=== PATIENT | female | born 1965 | race Caucasian/White ===

== ENCOUNTER 2022-11-07 10:48 | Emergency (ER) | payer MEDICARE, SELFPAY ==
--- NOTE | ~2022-11-07 | CT_ITS ---
EXAMINATION: CT brain wo con INDICATION: Altered mental status COMPARISON: None TECHNIQUE: Standard unenhanced head CT. The dose-length product (DLP) was 1513.33 mGy-cm. The mA was adjusted according to patient size. Iterative reconstruction technique was employed. FINDINGS: Motion artifact limits the examination despite multiple attempts at rescanning. There is no intracranial hemorrhage, acute infarction, or abnormal mass lesion. The ventricles are normal. There is no abnormal mass effect or midline shift. The dhillon-white matter differentiation is normal. The ba duc cisterns are patent. The orbits are normal. The paranasal sinuses, mastoids and calvarium are nor mal. IMPRESSION: 1. No acute intracranial abnormality, sensitivity limited by motion artifact. Reviewed, dictated and finalized at location A.
[2022-11-07 10:26] VITALS: BP 149/95; PULSE 108; RESP 18; TEMP 37.1; O2SAT 100
[2022-11-07 10:33] VITALS: PULSE 108
--- NOTE | 2022-11-07 11:02 | ED.GENADULT ---
HPI - General Adult General Chief complaint: Unspecified Stated complaint: requesting drug test Time Seen by Provider: 11/07/22 10:49 Source: patient Mode of arrival: EMS Limitations: no limitations History of Present Illness HPI narrative: Patient is a 57 y/o female who presents to the ED via EMS with altered mental status. Patient called for EMS today from [place] police station due to not knowing where she was at. Per EMS report she lives in [place], [place] and was unsure why she was in [place]. She reports to me that she met up with an old friend around 3pm yesterday and smoked crystal meth. She states she had been clean for some time and is unsure why she did this yesterday. She then left to drop off her boss's debit card in [facility] and states she just continued driving aimlessly and ultimately ended up in [place]. She was stopped by the police while driving last night and was in [place] overnight. She states she was confused when the chief commercial officer pulled her over and is concerned somebody slipped her something because why would she drive aimlessly like that. She is requesting a drug screen. Patient denies any pain. No focal weakness, CP, SOB, SI, HI. Per records, patient has history of bipolar disorder, anxiety disorder, tardive dyskinesia. Related Data Allergies Allergy/AdvReac Type Severity Reaction Status Date / Time No Known Allergies Allergy Verified 11/07/22 10:33 Review of Systems Review of Systems: CONSTITUTIONAL: Denies fever, chills, or sweats. EYES: Denies visual changes. CARDIOVASCULAR: Denies chest pain. RESPIRATORY: Denies dyspnea. GASTROINTESTINAL: Denies abdominal pain, nausea, vomiting, or diarrhea. GENITOURINARY: Denies dysuria or hematuria. NEUROLOGIC: See HPI. PSYCHIATRIC: See HPI. All systems reviewed & are unremarkable except as noted in HPI and below PMFSH Past Medical History Medical History (Updated 11/07/22 @ 13:11 by Tamika Santoyo PA-C) Anxiety Bipolar disorder Tardive dyskinesia Surgical History Surgical History (Updated 11/07/22 @ 11:39 by Tamika Santoyo PA-C) No pertinent past surgical history Social History Social History (Updated 11/07/22 @ 11:39 by Tamika Santoyo PA-C) Substance use: current Substance use type: amphetamines Exam Narrative: GENERAL: Anxious appearing, well-nourished, non-toxic, in no acute distress. HEAD: Normocephalic, atraumatic. EYES: PERRLA/EOMI, conjunctiva clear. Wide-eyed. ENT: MMs normal. Frequent grinding of teeth. NECK: Supple. No adenopathy, no masses. RESPIRATORY: Airway patent, respirations nonlabored. Clear to auscultation bilaterally, no rales, rhonchi, wheezing. CARDIOVASCULAR: Regular rate and rhythm without murmurs, rubs, or gallops. Radial pulses 2+ and equal bilaterally. ABDOMINAL: Soft, nontender, nondistended, no hepatosplenomegaly. Normoactive BS. MUSCULOSKELETAL: Moves all extremities. Strength/ROM intact without gross deformities. SKIN: Warm, dry, normal color. No rashes. NEURO: A&O X3. Speech clear. Cranial nerves II-XII grossly intact. Steady gait. No ataxic movements. No focal deficits. Strength 5/5 in upper and lower extremities bilaterally. PSYCHIATRIC: Anxious, paranoid. Normal interaction. Course Vital Signs Vital signs: Vital Signs Temperature 98.7 F 11/07/22 10:26 Pulse Rate 108 H 11/07/22 10:26 Respiratory Rate 18 11/07/22 10:26 Blood Pressure 149/95 H 11/07/22 10:26 Pulse Oximetry 100 11/07/22 10:26 Oxygen Delivery Room Air 11/07/22 10:26 Temperature 98.7 F 11/07/22 10:26 Pulse Rate 98 11/07/22 13:12 Respiratory Rate 18 11/07/22 13:12 Blood Pressure 135/76 11/07/22 13:12 Pulse Oximetry 98 11/07/22 13:12 Oxygen Delivery Room Air 11/07/22 10:26 Medical Decision Making MDM Narrative Medical decision making narrative: Patient presented to ED with report of altered mental status, found driving around [place], unsure how
[2022-11-07 11:27] LABS: Basophils Percent Auto 0.4 % (0.2-1.2); Eosinophils Absolute Auto 0.1 K/mm3 (0-0.3); Eosinophils Percent Auto 0.7 % (0-4.4); Hematocrit 43.4 % (37.0-47.0); Hemoglobin 15.1 g/dL (12.0-15.0); Immature Granulocyte Absolute 0.03 K/mm3 (0.00-0.031); Immature Granulocyte Percent A 0.3 % (0-0.5); Lymphocytes Absolute Auto 1.56 K/mm3 (0.9-3.2); Lymphocytes Percent Auto 14.3 % (18.3-44.2); Mean Corpuscular HGB Conc 34.8 g/dl (32-36); Mean Corpuscular Hemoglobin 31.3 pg (26-34); Mean Platelet Volume 11.7 fl (7.4-10.4); Monocytes Absolute Auto 1.1 K/mm3 (0.1-0.6); Monocytes Percent Auto 9.8 % (2.6-8.5); Neutrophils Absolute Auto 8.1 K/mm3 (1.3-6.7); Neutrophils Percent Auto 74.5 % (45.5-73.1); Platelet Count Result 247 k/mm3 (150-375); Red Blood Count 4.82 M/mm3 (4.2-5.4); Red Cell Distribution Width 12.8 % (11.5-14.5); White Blood Count 10.9 K/mm3 (4.5-10.0)
[2022-11-07 11:36] LABS: Alanine Aminotransferase 22 U/L (6-35); Albumin Level 4.7 g/dL (3.5-5.1); Alkaline Phosphatase 75 U/L (38-126); Anion Gap 11 mmol/L (8-16); Aspartate Amino Transferase 30 U/L (14-36); Bilirubin,Total 0.8 mg/dL (0.2-1.3); Blood Urea Nitrogen 7 mg/dL (7-17); Calcium 9.5 mg/dL (8.4-10.2); Carbon Dioxide 19 mmol/L (22-30); Chloride 108 mmol/L (98-107); Estimated CRCL calculation 67 ml/min; Estimated Glomerular Filt Rate > 60; Glucose 100 mg/dL (65-110); Potassium 3.4 mmol/L (3.4-5.0); Sodium 138 mmol/L (137-145)
[2022-11-07 12:11] LABS: Appearance Urine Clear (Clear); Bacteria Urine None Seen /hpf; Bilirubin Urine Negative (Negative); Blood Urine Negative (Negative); Color Urine Yellow (Yellow); Glucose Urine UA Negative (Negative); Ketones Urine Trace mg/dL (Negative); Leukocyte Esterase Ur Trace LEU/UL (Negative); Nitrate Urine Negative (Negative); Non Pathogenic Casts 0-2; Protein Urine Negative (Negative); RBC Urine 0-2 /hpf (0-2); Specific Grav Ur 1.006 (1.001-1.035); Squamous Epithelial Cell Urine Occasional /hpf (Few); Urobilinogen Urine 0.2 mg/dL (<2.0); WBC Urine 0-5 /hpf
[2022-11-07 12:18] LABS: Add Urine Microscopic? YES
[2022-11-07 12:21] LABS: Barbiturate Screen Urine Negative (Negative); Benzodiazepines Screen Urine Negative (Negative)
[2022-11-07 12:22] LABS: Cannabinoid Screen Urine Negative (Negative); Cocaine Screen Urine Negative (Negative); Methadone Screen Urine Negative (Negative); Opiate Screen Urine Negative (Negative); Phencyclidine Screen Urine Negative (Negative)
[2022-11-07 12:38] LABS: Acetaminophen < 10 ug/mL (10-30); Ethanol < 10 mg/dL (<10); Salicylate < 1.0 mg/dL (2-20)
[2022-11-07 12:51] LABS: Amphetamine Screen Urine Positive (Negative)
[2022-11-07 13:12] VITALS: BP 135/76; PULSE 98; RESP 18; O2SAT 98
== END 2022-11-07 13:17 | disposition home or self-care (01) ==
PROVIDERS: Emergency Provider Physician Assistant
DX: F15.921 Other stimulant use, unspecified with intoxication delirium (principal)
CPT/HCPCS: 36415; 70450; 80053; 80307; 81001; 85025; 99284